=== PATIENT | male | born 1965 | race Caucasian/White ===

== ENCOUNTER 2016-12-28 08:32 | Day surgery (SDC) | payer OTHER ==
[~2016-12-28] VITALS: Ht 175.3 cm; Wt 99.3 kg
[2016-12-28 09:00] VITALS: BP 119/80
[2016-12-28 13:48] VITALS: BP 101/72
== END 2016-12-28 12:00 | disposition home or self-care (01) ==
LOC: DS 08:32 → GI 10:30 → DS 12:00 → GI 13:30 → OR 13:30
PROVIDERS: Internal Medicine Gastroenterology
PROC: 0DBE8ZX Excision of Large Intestine, Via Natural or Artificial Opening Endoscopic, Diagnostic (ICD-10-PCS; principal; 2016-12-28 10:30)
DX: R19.7 Diarrhea, unspecified (principal)
CPT/HCPCS: 45378; 88344; J1200; J1610; J2250; J2310; J3010; J3490